=== PATIENT | male | born 1945 | race American Indian/Alaskan Native ===

== ENCOUNTER 2017-02-12 23:26 | Emergency (ER) | payer MEDICAID ==
[2017-02-13 01:27] LABS: Basophils % (Auto) 0.7 % (0.0-1.8); Eosinophils % (Auto) 0.8 % (0.0-4.3); Hematocrit 40.8 % (35.5-45.6); Hemoglobin 13.5 gm/dl (11.8-15.2); Mean Corpuscular HGB Conc 33 % (32-34); Mean Corpuscular Hemoglobin 32 pg (28-32); Mean Corpuscular Volume 96 fl (84-94); Platelet Count 177 K/mm3 (140-440); Red Blood Count 4.23 M/mm3 (3.65-5.03); Red Cell Distribution Width 14.4 % (13.2-15.2); White Blood Count 6.7 K/mm3 (4.5-11.0)
[2017-02-13 01:42] LABS: Anion Gap 18 mmol/L; Blood Urea Nitrogen 21 mg/dL (9-20); Calcium 9.4 mg/dL (8.4-10.2); Carbon Dioxide 26 mmol/L (22-30); Chloride 99.3 mmol/L (98-107); Glucose 131 mg/dL (75-100); Potassium 3.5 mmol/L (3.6-5.0); Sodium 140 mmol/L (137-145)
--- NOTE | 2017-02-13 07:24 | XRay Report ---
ROUTINE CHEST, TWO VIEWS: HISTORY: Shortness of breath. No comparison. There is mild cardiomegaly. A 3-lead pacemaker device is in place. Lungs are clear. No evidence for pneumonia, CHF or pneumothorax. IMPRESSION: Cardiomegaly. Lungs clear.
--- NOTE | 2017-02-13 09:47 | Emergency Department Report ---
HPI - General Chief Complaint: Extremity Injury, Lower Time Seen by Provider: 02/13/17 08:42 - HPI HPI: This is a 71-year-old -[place] male presents to the emergency department with complaint of a 2-3 day history of right knee pain and swelling that he says is an exacerbation of an old injury from like 30 years ago. He has not taken anything for his symptoms progress dictation. The patient denies any chest pain but does say that he has been having some shortness of breath with exertion. He denies any fever, nausea, vomiting, back pain or diaphoresis. He has a history of CHF, COPD, hypertension, LA 5, pacemaker and defibrillator. He has a primary care physician but has not seen him regarding his symptoms. No recent travel or sick contacts at home. ED Past Medical Hx - Past Medical History Previous Medical History?: Yes Hx Hypertension: Yes Hx Heart Attack/AMI: Yes (Has pacemaker/Defibrillator LA x 5) Hx Congestive Heart Failure: Yes Hx Renal Disease: Yes (Problems with his kidneys with some meds) Hx COPD: Yes - Surgical History Past Surgical History?: Yes Additional Surgical History: Bowel obstruction, stomach ulcers - Social History Smoking Status: Current Every Day Smoker - Medications Home Medications: Home Medications Medication Instructions Recorded Confirmed Last Taken Type ALBUTEROL Inhaler [ProAir HFA 2 puff IH QID PRN #1 inhalation 02/13/17 Unknown Rx Inhaler] HYDROcodone/APAP 5-325 [[place] 1 each PO Q6HR PRN #10 tablet 02/13/17 Unknown Rx 5/325] Sulfamethoxazole/Trimethoprim 1 each PO BID #10 tablet 02/13/17 Unknown Rx [Bactrim DS TAB] predniSONE [Deltasone] 20 mg PO QDAY #4 tab 02/13/17 Unknown Rx ED Review of Systems ROS: Stated complaint: RT KNEE SWELLING W/PAIN Other details as noted in HPI Comment: All other systems reviewed and negative Constitutional: denies: chills, fever Eyes: denies: eye pain, eye discharge, vision change ENT: denies: ear pain, throat pain Respiratory: SOB with exertion. denies: cough Cardiovascular: edema. denies: chest pain Gastrointestinal: denies: abdominal pain, nausea, diarrhea Genitourinary: denies: urgency, dysuria Musculoskeletal: joint swelling, arthralgia. denies: back pain Skin: denies: rash, lesions Neurological: denies: headache, weakness, paresthesias Physical Exam - Physical Exam Vital Signs: Vital Signs 02/13/17 02/13/17 00:48 06:26 Temperature 98.0 F 97.7 F Pulse Rate 80 74 Respiratory 18 18 Rate Blood Pressure 152/90 148/81 O2 Sat by Pulse 98 97 Oximetry Physical Exam: GENERAL: The patient is well-developed well-nourished. HENT: Normocephalic. Atraumatic. Patient has moist mucous membranes. EYES: Extraocular motions are intact. Pupils equal reactive to light bilaterally. NECK: Supple. Trachea is midline. CHEST/LUNGS: Mild wheezing throughout the chest. No tachypnea or accessory muscle use. There is no respiratory distress noted. HEART/CARDIOVASCULAR: Regular. There is no tachycardia. There is no gallop rub or murmur. ABDOMEN: Abdomen is soft, nontender. Patient has normal bowel sounds. There is no abdominal distention. SKIN: There is a large amount of swelling around the anterior right knee consistent with a joint effusion. NEURO: The patient is awake, alert, and oriented. The patient is cooperative. The patient has no focal neurologic deficits. The patient has normal speech. MUSCULOSKELETAL: There is tenderness to palpation to the right knee. Negative anterior and posterior drawer test. No laxity with valgus or varus stress. There is a large amount of nonpitting swelling around the anterior right knee consistent with a joint effusion. There is no limitation range of motion. ED Course Vital Signs 02/13/17 02/13/17 00:48 06:26 Temperature 98.0 F 97.7 F Pulse Rate 80 74 Respiratory 18 18 Rate Blood Pressure 152/90 148/81 O2 Sat by Pulse 98 97 Oximetry - Joint Aspiration/Injection Consent Obtained: verbal consent Time Out Performed: Yes Indications: to relieve pressure/pain Side of Body: right Joint Aspirated: knee Ultrasound Guidance: No Skin Prep: sterile prep and drape Local Anesthesia Used: Lidocaine 2% Amount of Anesthesia Used (mls): 2 Needle Size Used: 18G Syringe Size Used: Other (30 cc) Fluid Obtained: viscous Total Fluid Obtained (mls): 60 Patient Tolerated Procedure: well Complications: none ED Medical Decision Making - Lab Data Result diagrams: 02/13/17 01:10 02/13/17 01:10 - EKG Data -: EKG Interpreted by Me - EKG Data When compared to previous EKG there are: previous EKG unavailable Interpretation: other (electronic ventricular pacemaker, 80 bpm, slight elevation in the QTC, no ST elevation LA) - Radiology Data Radiology results: report reviewed, image reviewed interpreted by me: Chest x-ray does not show any acute process. There are no pleural effusions, obvious pneumonia and there is no pneumothorax. X-ray of the right knee shows some signs of osteoarthritis and what appears to be a moderate to large joint effusion. - Medical Decision Making 71-year-old male presents to the emergency department primarily for pain in the right knee which has become swollen and tender over the past few days. The patient says that this happens intermittently due to an old injury but he did not have any new trauma. There is tender and appears consistent with a joint effusion. However there is no erythema or warmth and appears lower suspicion for a septic joint. X-ray shows the effusion but no fracture or dislocation but probably some osteoarthritic changes. I did an arthrocentesis of the right knee under sterile conditions and removed about 60 mL of serous and/or viscous fluid. After the procedure the knee appeared moderately reduced in size and the patient had some relief of discomfort. He was placed in an Srinivas wrap and will follow-up with the orthopedist in the next few days. Despite doing it under sterile conditions the patient was placed on a few days of antibiotics to make sure that there was no introduction of infection. Patient secondarily came in with some shortness of breath. However he has a history of COPD and still has occasional tobacco abuse. There is mild wheezing throughout the chest. He does not appear to be in any respiratory distress. He has no chest pain. EKG does not show any signs of ST elevation LA. Chest x-ray does not show any acute process. Troponin negative. He was given a breathing treatment and upon reevaluation he says he is feeling greatly improved. He will go home on a four-day course of steroids, and albuterol inhaler and encouragement to follow-up with a primary care physician. He will return to the ER with any worsening of symptoms or any acute distress. - Differential Diagnosis osteoarthritis, occult knee fracture, gout, asthma, COPD Critical Care Time: No Critical care attestation.: If time is entered above; I have spent that time in minutes in the direct care of this critically ill patient, excluding procedure time. ED Disposition Clinical Impression: COPD (chronic obstructive pulmonary disease) Qualifiers: COPD type: unspecified COPD Qualified Code(s): J44.9 - Chronic obstructive pulmonary disease, unspecified Right knee pain Qualifiers: Chronicity: unspecified Qualified Code(s): M25.561 - Pain in right knee Joint effusion of knee Qualifiers: Laterality: right Qualified Code(s): M25.461 - Effusion, right knee Disposition: TO HOME OR SELFCARE Is pt being admited?: No Condition: Stable Instructions: Chronic Obstructive Pulmonary Disease (ED), Knee Effusion (ED) Additional Instructions: I have given her a referral for a local orthopedist, Dr. Woods, to follow up regarding your right knee pain and joint effusion. I've also given you multiple referrals for primary care physicians. Return to the emergency Department with any worsening of her symptoms or any acute distress. You have been prescribed a medication that is sedating and therefore should not be taken prior to driving, working, and responsible for children and in no way should be mixed with alcohol of any quantity. Prescriptions: ALBUTEROL Inhaler [ProAir HFA Inhaler] 2 puff IH QID PRN #1 inhalation PRN Reason: Shortness Of Breath HYDROcodone/APAP 5-325 [[place] 5/325] 1 each PO Q6HR PRN #10 tablet PRN Reason: Pain predniSONE [Deltasone] 20 mg PO QDAY #4 tab Sulfamethoxazole/Trimethoprim [Bactrim DS TAB] 1 each PO BID #10 tablet Referrals: PRIMARY MD ARI [Primary Care Provider] - 3-5 Days DANNA WOODS MD [Staff Physician] - 3-5 Days CHRISSY CARRIZALES MD [Staff Physician] - 3-5 Days SOSA QURESHI MD [Staff Physician] - 3-5 Days Time of Disposition: 11:16
--- NOTE | 2017-02-13 10:00 | XRay Report ---
RIGHT KNEE, 3 VIEWS History: Right knee pain and swelling. Findings: There is a large joint effusion which extends to the suprapatellar bursa. Bone mineralization is normal. There are moderate osteoarthritic changes which are most pronounced in the medial compartment. No evidence for fracture, large osteochondral defect or bone lesion. Impression: Moderate osteoarthritic changes. Large joint effusion. No acute bony injury is appreciated. If internal derangement is suspected, MRI right knee without contrast could be obtained.
[2017-02-13] MEDS ORDERED: NORCO 5/325 PO ONE (10:07)
[2017-02-13] MEDS ORDERED: DUONEB *Not for PRN Use IH ONE (10:07)
[2017-02-13] MEDS ORDERED: XYLOCAINE 2% INFILTRATI ONE (10:20)
[2017-02-13] MEDS ORDERED: EMLA TP ONE (11:00)
[2017-02-13] MEDS ORDERED: HURRICAINE ONE 20% TOPICAL SPRAY MM (11:30)
[2017-02-13 16:50] VITALS: BP 130/78
== END 2017-02-13 16:50 | disposition home or self-care (01) ==
LOC: ED 23:26
DX: M25.461 Effusion, right knee (principal); J44.9 Chronic obstructive pulmonary disease, unspecified; I10 Essential (primary) hypertension; I21.3 ST elevation (STEMI) myocardial infarction of unspecified site; I50.9 Heart failure, unspecified; F17.200 Nicotine dependence, unspecified, uncomplicated
CPT/HCPCS: 36415; 71020; 80048; 84484; 84550; 85025; 93005; 93010; 94640